=== PATIENT | female | born 1955 | race Caucasian/White ===

== ENCOUNTER → 2020-11-10 | Outpatient (CLI) | payer MEDICARE, OTHER ==
[2016-10-26 20:50] VITALS: BP 142/84
[~2020-11-10] MED LIST: [UNRECOGNIZED DRUG - REMARK]
--- NOTE | 2020-11-10 17:31 | RAD ---
US ABDOMEN COMPLETE: 11/10/2020 9:15 AM Indication: 65 years old Female. Right upper quadrant pain: . Comparison: None. TECHNIQUE: Sonographic evaluation of the abdomen is performed utilizing grayscale and color Doppler. FINDINGS: Liver: There is diffuse increased echogenicity of the hepatic parenchyma compatible with diffuse hepa tocellular disease, most commonly due to steatosis. This decreases the sensitivity of ultrasound for the detection of focal hepatic lesions.. There is hepatopedal flow within the portal venous system. R ight hepatic lobe measures 13.7 cm. Biliary system: CBD measures 3.8 mm. There is no intrahepatic or extrahepatic biliary dilatation. Gallbladder: No stones, wall thickening or pericholecystic fluid. . Sonographic Lockett sign: Negative Pancreas: Visualized head and uncinate process are unremarkable. Body and tail are not visualized. Spleen: 9.7 cm. Right kidney: 10.5 x 5.1 x 5.1 cm. No hydronephrosis. Normal echotexture without focal mass or renal calculus. Left kidney: 10.8 x 5.3 x 4.9 cm. No hydronephrosis. There is a 0.7 cm nonobstructing left renal calc ulus. Abdominal aorta and IVC: Visualized portions unremarkable. Free fluid:None. IMPRESSION: Diffuse increased echogenicity of the hepatic parenchyma suggestive of diffuse hepatocellular disease , most commonly due to hepatic steatosis. 7 mm nonobstructing calculus identified in the left kidney. No hydronephrosis. Electronically signed by: Mili Thomas MD (11/10/2020 5:29 PM) [facility]
== END ==
LOC: US 08:50
PROVIDERS: ATTEND Family Medicine
DX: K76.0 Fatty (change of) liver, not elsewhere classified (principal); N20.0 Calculus of kidney
CPT/HCPCS: 76700

== ENCOUNTER → 2020-11-26 | Outpatient (CLI) | payer MEDICARE, OTHER ==
[2016-10-26 20:50] VITALS: BP 142/84
[~2020-11-26] VITALS: Ht 162.6 cm; Wt 70.3 kg
[~2020-11-26] MED LIST changes: +ASPI-630 PO; +LOSA100T14 PO; +SIMV20TA PO; +SINCALIDE 1.4 MCG in IV NORMAL SALINE 50ML 30 ML IV ONE; +SITA1TAB11 PO
--- NOTE | 2020-11-26 11:58 | RAD ---
EXAM: HEPATOBILIARY SCINTIGRAPHY WITH GALLBLADDER EJECTION FRACTION CALCULATION. HISTORY: Right upper quadrant pain. TECHNIQUE: 5.5 mCi technetium-99m Choletec were administered intravenously and scintigraphic images o f the abdomen obtained. After filling of the gallbladder, 1.4 mcg of sincalide were infused and the g allbladder ejection fraction calculated. FINDINGS: There is prompt hepatic clearance of tracer from the blood pool. There is homogeneous distr ibution throughout the liver. There is normal filling of the gallbladder and clearance into the bilia ry tree and small bowel. The gallbladder ejection fraction is 63% (normal >35%). IMPRESSION: 1. Normal gallbladder ejection fraction. Electronically signed by: Rohit Fairbanks MD (11/26/2020 11:56 AM) [id number]
== END ==
LOC: NM 08:50
PROVIDERS: ATTEND Family Medicine
DX: R10.11 Right upper quadrant pain (principal)
CPT/HCPCS: 78227; A9537; J2805

== ENCOUNTER → 2021-12-06 | Outpatient (CLI) | payer MEDICARE, OTHER ==
[2016-10-26 20:50] VITALS: BP 142/84
[~2021-12-06] MED LIST changes: -SINCALIDE 1.4 MCG in IV NORMAL SALINE 50ML 30 ML IV ONE
--- NOTE | 2021-12-06 13:32 | RAD ---
DXA BONE DENSITY AXIAL History: Menopause climacteric state. Comparison: None. TECHNIQUE: Dual energy x-ray absorptiometry of the lumbar spine and right hip was performed. T-score of average bone mineral density based was calculated based on standard deviations above or below the expected young adult normal value. Diagnostic definitions were established by the [employer] z[employer]. FINDINGS: The average bone mineral density associated with L1-L4 is 1.177 g/cm^2, corresponding with a T-score of 0.0. The average total bone mineral density associated with right hip is 0.935 g/cm^2, corresponding with a T-score of -0.1. Refer to the worksheets for full detail. IMPRESSION: 1. Normal. Average bone mineral density yields a T-score of -1.0 or greater. Fracture risk is low. Electronically signed by: Larry Bowers MD (12/06/2021 1:30 PM) [id number]
--- NOTE | 2021-12-12 16:34 | RAD ---
Bilateral digital screening 2-D and 3-D (digital breast tomosynthesis) mammogram: Reason for examination: Routine screening. Comparison: Mammograms from 07/29/2020 and 12/16/2018. Interpretation was made with the benefit of CAD. FINDINGS: Breast density: Category B. There are scattered areas of fibroglandular density. No suspicious breast mass, malignant appearing calcifications, or architectural distortion is seen. IMPRESSION: No evidence of malignancy. Assessment: BI-RADS 1. Negative. Recommendation: Routine screening mammograms. The patient will receive a letter with the results in the mail. Patient information will be entered i nto the mammography reminder system with a target recall date for the next mammogram. A reminder alyson er will be generated. Electronically signed by: Ellen Cowart MD (12/12/2021 4:31 PM) [id number]
== END ==
LOC: MAMMO 11:08
PROVIDERS: ATTEND Family Medicine
DX: Z12.31 Encounter for screening mammogram for malignant neoplasm of breast (principal); Z78.0 Asymptomatic menopausal state
CPT/HCPCS: 77063; 77067; 77080